=== PATIENT | male | born 1995 | race Caucasian/White ===

== ENCOUNTER 2019-09-01 08:08 | Outpatient (CLI) | payer OTHER ==
[~2019-09-01] VITALS: Ht 170.2 cm; Wt 60.4 kg
[2019-09-01 08:22] VITALS: BP 121/44; PULSE 71
[2019-09-01] MEDS ORDERED: MULTI VITAMINS1 TAB PO (08:22)
[2019-09-01 08:25] VITALS: BP 121/44; PULSE 71
[2019-09-01 08:42] LABS: HEMATOCRIT 46.1 % (42.0-52.0); HEMOGLOBIN 15.7 g/dl (13.5-18.0); MEAN CELL VOLUME 92 fl (80.0-100.0); MEAN CORPUSCULAR HEMOGLOBIN 31 pg (27.0-31.0); MEAN CORPUSCULAR HGB CONC 34 g/dl (33.0-37.0); MEAN PLATELET VOLUME 9.6 fl (7.4-10.4); PLATELET COUNT 189 K/mm3 (130-400); RED BLOOD COUNT 5.03 M/mm3 (4.20-5.60); REDCELL DISTRIBUTION WIDTH-CV 12.4 % (11.5-14.5)
[2019-09-01 08:48] LABS: INR 0.9 (0.8-3.0); PROTHROMBIN TIME 10.6 SECONDS (9.7-12.8)
[2019-09-01 08:55] LABS: CALCIUM 9.2 mg/dL (8.4-10.2); CREATININE, serum 0.85 (0.66-1.25)
[2019-09-01 10:25] VITALS: BP 106/74; PULSE 68
[2019-09-01 10:30] VITALS: BP 105/63; PULSE 67
--- NOTE | 2019-09-01 10:40 | NUR ---
pt given pudding and sprite to eat.
[2019-09-01 10:45] VITALS: BP 102/83; PULSE 67
[2019-09-01 11:00] VITALS: BP 107/62; PULSE 67
--- NOTE | 2019-09-01 11:00 | NUR ---
PT STATES HE IS DOING FINE. INT DC'D INTACT WITH PRESSURE DRESSING APPLIED. WENT OVER DC INFORMATION WITH PT AND HE VERBALZIED UNDERSTANDING OF INFO. PT WAS TAKEN TO PT ENTRANCE BY WHEELCHAIR AND LOADED INTO POV.
== END 2019-09-01 13:00 | disposition home or self-care (01) ==
LOC: COL.RAD 08:08
PROVIDERS: Internal Medicine Interventional Cardiology
DX: R07.89 Other chest pain (principal); R94.31 Abnormal electrocardiogram [ECG] [EKG]
CPT/HCPCS: J2704